=== PATIENT | female | born 1965 | race Caucasian/White ===

== ENCOUNTER 2020-09-09 04:06 | Observation (INO) | payer BC, SELFPAY ==
[2020-09-09] VITALS (7 sets, daily range): BP systolic 114–147; BP diastolic 75–98; PULSE 67–102; RESP 16–18; TEMP 36.2–36.9; O2SAT 95–100; BMI 19.7
--- NOTE | 2020-09-09 04:24 | EKG12_ITS ---
Test Reason : CP Blood Pressure : / mmHG Vent. Rate : 100 BPM Atrial Rate : 100 BPM P-R Int : 170 ms QRS Dur : 076 ms QT Int : 356 ms P-R-T Axes : 072 049 054 degrees QTc Int : 459 ms Normal sinus rhythm Possible Left atrial enlargement Nonspecific ST and T wave abnormality Abnormal ECG Confirmed by DANIELLE ZAMORA, LONNIE ([id number]), news copy editor BRIAN ARMENTA ([id number]) on 09/13/2020 9:28:08 AM Referred By: DANIEL Confirmed By:LONNIE SANTOS MD
[2020-09-09 04:31] LABS: Absolute Lymphocyte Count 2.25 X10^3/uL (0.83-4.51); Absolute Neutrophil Count 2.7 X10^3/uL (2.0-7.7); Basophil# 0.04 X10^3/uL; Basophil% 0.7 % (0-1); Eosinophil# 0.15 X10^3/uL; Eosinophils% 2.6 % (0-5); Hematocrit 37.9 % (37-47); Hemoglobin 12.7 g/dL (12.0-15.0); Lymphocyte # 2.25 X10^3/ul (0.83-4.51); Lymphocyte % 39.1 % (19-41); Mean Corp Hgb Conc 33.5 g/dL (32-36); Mean Corpuscular Hgb 30.6 pg (27.0-32.0); Mean Corpuscular Volume 91.3 fL (81-99); Mean Platelet Vol. 9.2 fl (6.2-12.0); Monocyte# 0.58 X10^3/uL; Monocyte% 10.1 % (0-10); NRBC Flagged by Analyzer 0 % (0-5); Neutrophil # 2.72 X10^3/uL (2.7-7.7); Neutrophil % 47.3 % (47-70); Platelet Count 244 K/mm3 (150-450); RBC Distribution Width CV 12.5 % (11.6-14.6); RBC Distribution Width SD 41.5 fl (35.1-43.9); Red Blood Count 4.15 M/mm3 (4.2-5.4); White Blood Count 5.8 K/mm3 (4.4-11.0)
--- NOTE | 2020-09-09 04:45 | RAD_ITS ---
HISTORY: chest pain EXAM: XR Chest 1 View: COMPARISON: None FINDINGS: # of images incl. paperwork: 1 Lungs are clear. Heart is not enlarged. No acute osseous pathology perceived. Pulmonary vascularity is distinct. No effusions. RAD/Chest 1 View (Portable) IMPRESSION: Normal. at 0534 Reported and signed by: Benji Botello MD Electronically Signed: Benji Botello MD at 5:32 EDT Tel , Service support ,
[2020-09-09 04:49] LABS: Anion Gap 7 (5-15); BUN 9 mg/dL (7-18); BUN/Creat Ratio 16.3 RATIO (10-20); Calcium,Total 9.1 mg/dL (8.5-10.1); Chloride 109 mmol/L (98-107); Creatinine, Serum 0.55 mg/dL (0.55-1.02); EST Glomerular Filtration Rate 121 mL/min (>60); Est Glom Filt Rate - Afr Amer 146 mL/min (>60); Estimated Creatinine Clearance 87.21 ml/min; Glucose 106 mg/dL (74-106); Potassium 3.5 mmol/L (3.5-5.1); Sodium Level 142 mmol/L (136-145)
--- NOTE | 2020-09-09 05:13 | EDS_ITS ---
HPI History of Present Illness Chief Complaint: Chest Pain Informant: patient Narrative Narrative: 55-year-old female presenting with chest pain. She states this started around 1 PM and has been intermittent throughout the day. She tried Shital-[place] with no relief. She has tingling down both arms. She denies shortness of breath. She has not seen a physician in several years. She is not a smoker. Prior similar symptoms: No Recent Illness/Hospitalization: No PFSH PFSH Home Medications NK 09/09/20 [History Last Taken Unknown] Allergy/AdvReac Type Severity Reaction Status Date / Time No Known Allergies Allergy Verified 09/09/20 04:10 Social History (System 11/16/18 @ 13:34 by Alma Bonilla) Smoking Status: Never smoker ROS ROS ED Constitutional Constitutional ED: Denies fever(s) Eyes Eyes: Denies change in vision ENT ENT ED: Denies rhinorrhea or sore throat Cardiovascular Cardiovascular: Reports chest pain; Denies palpitations Respiratory/Chest Respiratory/Chest: Denies cough or dyspnea Gastrointestinal Gastrointestinal: Denies abdominal pain, diarrhea, nausea or vomiting Genitourinary Genitourinary ED: Denies dysuria Musculoskeletal Musculoskeletal: Denies myalgias Integumentary Denies rash Neurologic Neurologic: Denies headache(s) Psychiatric Psychiatric: Denies suicidal thoughts EXAM Physical Exam Const Vital Signs: 09/09/20 04:06 09/09/20 04:09 09/09/20 04:35 Temperature 97.8 F Temperature Source Temporal Pulse Rate 102 H Respiratory Rate 18 Respiratory Effort Normal Blood Pressure 143/89 H Blood Pressure Mean 107 Pulse Ox 97 Oxygen Delivery Method Room Air Room Air Positive well nourished and well developed General Appearance ED: well developed HEENT Reports normocephalic and head/scalp atraumatic Eyes PERRL and EOMs intact bilaterally Neck supple General: Negative for tenderness Chest Wall inspection of chest normal Resp normal respiratory effort and clear to auscultation bilaterally Cardio regular rate and regular rhythm GI non-tender and non-distended Palpation: soft; Negative for guarding or rebound tenderness present no CVA tenderness Extremity normal to inspection Neuro oriented x3 Sensorium / Orientation: alert Psych mental status grossly normal MDM MDM MDM Narrative Medical decision making narrative: Patient was given aspirin on arrival. Labs were reviewed. She is resting comfortably on reevaluation. Discussed with hospitalist for observation. Lab Data Attestation: I reviewed the patient's lab results. Labs: Laboratory Results - last 24 hr 09/09/20 09/09/20 04:25 04:25 WBC 5.8 RBC 4.15 L Hgb 12.7 Hct 37.9 MCV 91.3 MCH 30.6 MCHC 33.5 RDW Std Deviation 41.5 RDW Coeff of Naomi 12.5 Plt Count 244 MPV 9.2 Immature Gran % (Auto) 0.200 Neut % (Auto) 47.3 Lymph % (Auto) 39.1 [place] % (Auto) 10.1 H Eos % (Auto) 2.6 Baso % (Auto) 0.7 Absolute Neuts (auto) 2.7 Absolute Lymphs (auto) 2.25 Nucleated RBC % 0 Sodium 142 Potassium 3.5 Chloride 109 H Carbon Dioxide 26.0 Anion Gap 7 BUN 9 Creatinine 0.55 Estim Creat Clear Calc 87.21 Est GFR (MDRD) Af Amer 146 Est GFR (MDRD) Non-Af 121 BUN/Creatinine Ratio 16.3 Glucose 106 Calcium 9.1 Troponin I < 0.015 Radiography Chest X-Ray - ED: 1 View, Read by ED Physician, Read by Radiologist and No Acute Disease Diagnostic Testing: Radiology Impression Chest X-Ray 09/09/20 04:45 IMPRESSION: Normal. at 0534 Reported and signed by: Benji Botello MD Electronically Signed: Benji Botello MD at 5:32 EDT Tel , Service support , EKG Initial EKG: Attestation: I personally reviewed and interpreted this EKG as follows: Interpretation: Sinus Rhythm and Non-Specific ST Changes Prior EKG tracings: not available for review Discharge Plan Triage Chief Complaint: Chest Pain ED Provider: Steph Connelly Dx/Rx/DC Orders Clinical Impression: Chest pain Prescriptions: No Action NK RF: 0 Primary Care Provider: Care Physician,No Primary Referrals: Care Physician,No Primary [Primary Care Provider] - Disposition Disposition: [facility]
[2020-09-09] MEDS: Aspirin 81 MG TAB.CHEW 324 MG PO (05:49)
[2020-09-09] MEDS: Mag Hydrox/Al Hydrox/Simeth 30 ML UDC PO (05:50)
--- NOTE | 2020-09-09 06:16 | PCM.HP.STD ---
HPI - General General Date of Admission: 09/09/20 HPI Narrative Yuly TURK is a 55 F previously healthy who presents to the emergency department with substernal chest pain that started several hours before presentation. Her chest pain is intermittent. It radiated to her bilateral arms and fingers where she felt a tingling sensation. She described the chest pain itself as a burning and heaviness. She denies any aggravating or ameliorating factors to the chest pain. Initially she thought that the chest pain was because of heartburn so she took some Shital-[place] without any real relief. The chest pain later woke up from her sleep. Also she describes a feeling of a dry throat associated with the chest pain. She denies any nausea or vomiting. She reports anxiety. PFSH no medical history Home Medications NK 09/09/20 [History Last Taken Unknown] Allergy/AdvReac Type Severity Reaction Status Date / Time No Known Allergies Allergy Verified 09/09/20 04:10 Family History (Updated 09/09/20 @ 06:[address] Jean Simental MD) Mother COPD (chronic obstructive pulmonary disease) Heart disease Surgical History (Updated 09/09/20 @ 06:[address] Jean Simental MD) H/O tubal ligation Social History (Updated 09/09/20 @ 06:[address] Jean Simental MD) Smoking Status: Never smoker alcohol intake: current alcohol intake frequency: a few times a week Alcohol type: wine ROS ROS Narrative 12 point review of system is negative except as stated in HPI. Vital Signs Vital Signs Vital Signs: 09/09/20 04:06 09/09/20 04:09 09/09/20 04:35 Temperature 97.8 F Temperature Source Temporal Pulse Rate 102 H Respiratory Rate 18 Respiratory Effort Normal Blood Pressure 143/89 H Blood Pressure Mean 107 Pulse Ox 97 Oxygen Delivery Method Room Air Room Air 09/09/20 05:58 Temperature 97.2 F L Temperature Source Temporal Pulse Rate 98 Respiratory Rate 16 Respiratory Effort Blood Pressure 134/79 H Blood Pressure Mean 97 Pulse Ox 100 Oxygen Delivery Method Room Air Weight Weight: 48 kg Body Mass Index (BMI) 20.0 Physical Exam Narrative Alert and oriented x3 Nontraumatic; normocephalic Lung clear to auscultate Heart sounds S1-S2. No murmur, gallop or rubs. Abdomen bowel sounds present soft, nontender nondistended Extremity without edema cyanosis or clubbing. Psychiatry: Anxious Results Lab / Micro Data Result Diagrams: 09/09/20 04:25 09/09/20 04:25 Labs: Laboratory Results - last 24 hr 09/09/20 09/09/20 04:25 04:25 WBC 5.8 RBC 4.15 L Hgb 12.7 Hct 37.9 MCV 91.3 MCH 30.6 MCHC 33.5 RDW Std Deviation 41.5 RDW Coeff of Naomi 12.5 Plt Count 244 MPV 9.2 Immature Gran % (Auto) 0.200 Neut % (Auto) 47.3 Lymph % (Auto) 39.1 [place] % (Auto) 10.1 H Eos % (Auto) 2.6 Baso % (Auto) 0.7 Absolute Neuts (auto) 2.7 Absolute Lymphs (auto) 2.25 Nucleated RBC % 0 Sodium 142 Potassium 3.5 Chloride 109 H Carbon Dioxide 26.0 Anion Gap 7 BUN 9 Creatinine 0.55 Estim Creat Clear Calc 87.21 Est GFR (MDRD) Af Amer 146 Est GFR (MDRD) Non-Af 121 BUN/Creatinine Ratio 16.3 Glucose 106 Calcium 9.1 Troponin I < 0.015 Radiology Impression Chest X-Ray 09/09/20 04:45 IMPRESSION: Normal. at 0534 Reported and signed by: Benji Botello MD Electronically Signed: Benji Botello MD at 5:32 EDT Tel , Service support , Assessment & Plan Assessment/Plan (1) Chest pain: QUALIFIERS: Chest pain type: unspecified Qualified Code(s): R07.9 - Chest pain, unspecified (2) Anxiety: PLAN: Chest pain Place on a monitored bed at progressive care unit Radiologist impression of chest x-ray: Normal. Actual CXR image was independently visualized. No acute cardiopulmonary process was noted. Actual EKG tracing was independently visualized. EKG tracing showed subtle ST depression in V3 to V6. No old records to compare with. Received GI cocktail and aspirin 324 mg at emergency department. ASA 81 mg p.o. daily ordered SL NTG 0.4 mg prn as needed for chest pain ordered We will check lipid panel. Serial cardiac enzymes ordered Stat EKG as needed for chest pain Treadmill stress test if cardiac enzymes are negative Anxiety Patient is anxious to the point that he is requesting something to calm her down in the hospital setting. Atarax ordered. DVT prophylaxis ordered. SCD ordered. Charges/Coding Visit Charges OBSV E&M: 72284 Initial observation care L2
--- NOTE | 2020-09-09 06:34 | EKG12_ITS ---
Test Reason : CP ADMIT Blood Pressure : / mmHG Vent. Rate : 079 BPM Atrial Rate : 079 BPM P-R Int : 130 ms QRS Dur : 086 ms QT Int : 392 ms P-R-T Axes : 072 042 061 degrees QTc Int : 449 ms Normal sinus rhythm Nonspecific T wave abnormality Abnormal ECG When compared with ECG of 09-SEP-2020 04:11, MANUAL COMPARISON REQUIRED, DATA IS UNCONFIRMED Confirmed by DANIELLE ZAMORA, LONNIE ([id number]), make up editor BRIAN ARMENTA ([id number]) on 09/11/2020 9:09:04 AM Referred By: SHAYLA Confirmed By:LONNIE SANTOS MD
[2020-09-09] MEDS: hydrOXYzine PAM 25 MG Capsule 50 MG PO (07:01)
--- NOTE | 2020-09-09 12:21 | NURSING ---
pt states she would like to leave today. informed of process/risks/ramifications/pt rights. MD aware and will go in and talk with pt as well. pt agreeable to speak to MD prior to leaving AMA.
--- NOTE | 2020-09-09 13:11 | PCM.DC ---
Discharge Instructions Diet Discharge Diet: No restrictions Dressing / Incision Call your doctor if you observe: Fever of 101 or Higher, Shortness of breath, Dizziness, Fainting spells, Swelling in the ankles, Chest pain and Increased palpitations (irregular heartbeat) Follow Up Care Test Results: Test results from this visit will be discussed in further detail at your follow-up appointment, if applicable. Discharge Plan Admission Admit Date/Time: 09/09/20 05:48 Attending Provider: Mannei Lino Primary Care Provider: Care Physician,No Primary Instructions Patient Instructions: ED Chest Pain, Noncardiac, ED Chest Pain, Uncertain Cause, ED Anxiety Reaction, Recognizing a Heart Attack or Angina, Warning Signs of a Heart Attack Discharge Orders/Prescriptions Prescriptions: No Action NK RF: 0 Referrals / Follow Up: Care Physician,No Primary [Primary Care Provider] - Disposition Disposition (needs filled in before D/C Order can be placed): Home, self care
--- NOTE | 2020-09-09 13:12 | PCM.DC.SUM ---
Providers Date of Admission: 09/09/20 Primary Care Physician: No Primary Care Phys Reason For Visit: CHEST PAIN Diagnosis Discharge Diagnosis (1) Chest pain: Status: Acute Code(s): R07.9 - Chest pain, unspecified Qualifiers: Chest pain type: unspecified Qualified Code(s): R07.9 - Chest pain, unspecified (2) Anxiety: Status: Acute Code(s): F41.9 - Anxiety disorder, unspecified Medications at Discharge Home Medications NK 09/09/20 Hospital Course Operations None Procedures None Summary of Care Provided Minutes Spent on Discharge: 35 Hospital Course: Per HPI:Yuly TURK is a 55 F previously healthy who presents to the emergency department with substernal chest pain that started several hours before presentation. Her chest pain is intermittent. It radiated to her bilateral arms and fingers where she felt a tingling sensation. She described the chest pain itself as a burning and heaviness. She denies any aggravating or ameliorating factors to the chest pain. Initially she thought that the chest pain was because of heartburn so she took some Shital-[place] without any real relief. The chest pain later woke up from her sleep. Also she describes a feeling of a dry throat associated with the chest pain. She denies any nausea or vomiting. She reports anxiety. Hospital Course: 1. Chest gowv-5-grol-old female presented this morning with chest pain that woke her up from sleep. She tried to take 2 Tums which did not help and so she came to the hospital. She says that it kind of felt like her heartburn but worse. She denies ever having this type of chest pain before, she denies any tobacco use. She states that her mother's only one that she knows of who had heart disease and that was heart failure secondary to smoking and obesity. Later on today she became anxious about sitting here she stated that her pain had resolved after she was given Mylanta and she just wants to go home. She understands that if she goes home she could have a heart attack and risks however she states that she would rather be home and come back to the hospital if need be then waste 24 hours here in the hospital. I told her that her quickest way of getting down to the cause of this would be to stay to get the stress test however she says that she would rather find a PCP as an outpatient especially since her enzymes are negative and her EKG was unremarkable, and if necessary have a stress test done as an outpatient. She expressed understanding of the risks and benefits of going home today and would still like to go home therefore she was discharged. I encouraged her to come back to the hospital if she has any chest pain or shortness of breath and I also encouraged her to find a PCP. Physical Exam Const alert, oriented x3 and no apparent distress General Appearance: cooperative HEENT normocephalic and moist oral mucous membranes Eyes PERRL, EOMs intact bilaterally and conjunctivae normal Neck supple and no JVD Resp normal respiratory effort, no retractions, no use of accessory muscles and clear to auscultation bilaterally Auscultation: Negative for crackles, rales, rhonchi or wheezes Cardio regular rate, regular rhythm, S1 normal heart sound, S2 normal heart sound and no murmurs GI soft to palpation, non-tender and non-distended; Negative for hepatosplenomegaly Extremity no clubbing, cyanosis or edema Skin no rashes or lesions noted Neuro no focal motor deficits and no sensory deficits noted Psych affect normal Appearance: appropriate Weight / BMI Weight Weight: 104 lb 7.986 oz Body Mass Index (BMI) 19.7 ABG / Lab / Microbiology Data Result Diagrams: 09/09/20 04:25 09/09/20 04:25 Laboratory: Laboratory Results - last 24 hr 09/09/20 09/09/20 09/09/20 04:25 04:25 07:47 WBC 5.8 RBC 4.15 L Hgb 12.7 Hct 37.9 MCV 91.3 MCH 30.6 MCHC 33.5 RDW Std Deviation 41.5 RDW Coeff of Naomi 12.5 Plt Count 244 MPV 9.2 Immature Gran % (Auto) 0.200 Neut % (Auto) 47.3 Lymph % (Auto) 39.1 [place] % (Auto) 10.1 H Eos % (Auto) 2.6 Baso % (Auto) 0.7 Absolute Neuts (auto) 2.7 Absolute Lymphs (auto) 2.25 Nucleated RBC % 0 Sodium 142 Potassium 3.5 Chloride 109 H Carbon Dioxide 26.0 Anion Gap 7 BUN 9 Creatinine 0.55 Estim Creat Clear Calc 87.21 Est GFR (MDRD) Af Amer 146 Est GFR (MDRD) Non-Af 121 BUN/Creatinine Ratio 16.3 Glucose 106 Calcium 9.1 Troponin I < 0.015 < 0.015 09/09/20 11:18 WBC RBC Hgb Hct MCV MCH MCHC RDW Std Deviation RDW Coeff of Naomi Plt Count MPV Immature Gran % (Auto) Neut % (Auto) Lymph % (Auto) [place] % (Auto) Eos % (Auto) Baso % (Auto) Absolute Neuts (auto) Absolute Lymphs (auto) Nucleated RBC % Sodium Potassium Chloride Carbon Dioxide Anion Gap BUN Creatinine Estim Creat Clear Calc Est GFR (MDRD) Af Amer Est GFR (MDRD) Non-Af BUN/Creatinine Ratio Glucose Calcium Troponin I < 0.015 Radiography Diagnostic Testing: Radiology Impression Chest X-Ray 09/09/20 04:45 IMPRESSION: Normal. at 0534 Reported and signed by: Benji Botello MD Electronically Signed: Benji Botello MD at 5:32 EDT Tel , Service support , D/C Instructions Discharge Diet: No restrictions Call your doctor if you observe: Fever of 101 or Higher, Shortness of breath, Dizziness, Fainting spells, Swelling in the ankles, Chest pain and Increased palpitations (irregular heartbeat) Meaningful Use Info Meaningful Use Diagnoses (Choose all that apply): None applicable Discharge Plan Admission Admit Date/Time: 09/09/20 05:48 Attending Provider: Mannie Lino Primary Care Provider: Care Physician,No Primary Instructions Patient Instructions: Recognizing a Heart Attack or Angina, Warning Signs of a Heart Attack, ED Anxiety Reaction, ED Chest Pain, Noncardiac, ED Chest Pain, Uncertain Cause Discharge Orders/Prescriptions Prescriptions: No Action NK RF: 0 Referrals / Follow Up: Care Physician,No Primary [Primary Care Provider] - Disposition Disposition (needs filled in before D/C Order can be placed): Home, self care Charges/Coding Visit Charges OBSV E&M: 07965 Observ/hosp same date L2
== END 2020-09-09 13:11 | disposition home or self-care (01) ==
LOC: ED 05:56 → PCU 06:04
PROVIDERS: Admitting Provider Hospitalist; Emergency Provider Emergency Medicine; Visit Provider Family Medicine
DX: R07.89 Other chest pain (principal); R20.2 Paresthesia of skin; F41.9 Anxiety disorder, unspecified
CPT/HCPCS: 36415; 71045; 80048; 84484; 85025; 93005; 99218; 99285; A4216; G0378